=== PATIENT | male | born 1965 | race Caucasian/White ===

== ENCOUNTER 2016-12-22 09:27 | Emergency (ER) | payer SELFPAY ==
[~2016-12-22] VITALS: Ht 172.7 cm; Wt 115.0 kg
[2016-12-22 09:29] VITALS: Ht 172.7 cm; Wt 115.0 kg
[2016-12-22] MEDS ORDERED: SOD CHLORIDE 0.9% 1,000 ML IV STA (09:29)
[2016-12-22] MEDS ORDERED: ONDANSETRON 4 MG INJ IV STA (09:29)
[2016-12-22] MEDS ORDERED: LORAZEPAM 2 MG INJ IV ONE (09:30)
[2016-12-22] MEDS ORDERED: FAMOTIDINE 20 MG INJ IV ONE (09:30)
[2016-12-22 09:46] LABS: BASOPHILS % 0.4 % (0.0-2.0); EOSINOPHILS # 0.1 10^3/ul (0.0-0.5); EOSINOPHILS % 1.5 % (0.0-7.0); HEMATOCRIT 43.5 % (42.0-52.0); HEMOGLOBIN 15.1 g/dl (14.0-18.0); LYMPHOCYTES # 4.4 10^3/ul (0.8-2.9); LYMPHOCYTES % 48.3 % (15.0-51.0); MEAN CORPUSCULAR HEMOGLOBIN 30.9 pg (29.0-33.0); MEAN CORPUSCULAR HGB CONC 34.7 g/dl (32.0-37.0); MEAN PLATELET VOLUME 11.7 fl (7.4-10.4); MONOCYTE # 0.8 10^3/ul (0.3-0.9); MONOCYTES % 9.1 % (0.0-11.0); NEUTROPHIL # 3.7 10^3/ul (1.6-7.5); NEUTROPHILS % 40.4 % (39.0-77.0); PLATELET COUNT 220 10^3/UL (140-415); RED BLOOD COUNT 4.89 10^6/ul (4.70-6.10); RED CELL DISTRIBUTION WIDTH 12.4 % (11.5-14.5); WHITE BLOOD COUNT 9.1 10^3/ul (4.8-10.8)
[2016-12-22 10:05] LABS: ALANINE AMINOTRANSFERASE 106 IU/L (13-69); ALBUMIN 4.8 g/dl (3.3-4.9); ALBUMIN/GLOBULIN RATIO 1.29; ALKALINE PHOSPHATASE 63 IU/L (42-121); ANION GAP 19 (8-16); ASPARTATE AMINO TRANSFERASE 49 IU/L (15-46); BILIRUBIN,INDIRECT 0.9 mg/dl (0-1.1); BILIRUBIN,TOTAL 0.9 mg/dl (0.2-1.3); BLOOD UREA NITROGEN 14 mg/dl (7-20); CALCIUM 9.8 mg/dl (8.4-10.2); CARBON DIOXIDE 22 mmol/L (21-31); CHLORIDE 105 mmol/L (97-110); CREATININE 0.85 mg/dl (0.61-1.24); GLUCOSE 157 mg/dl (70-220); POTASSIUM 3.5 mmol/L (3.5-5.1); SODIUM 142 mmol/L (135-144); TOTAL PROTEIN 8.5 g/dl (6.1-8.1)
--- NOTE | 2016-12-22 10:07 | RADRPT ---
PROCEDURE: XR Chest. CLINICAL INDICATION: Chest pain TECHNIQUE: Single portable view of the chest was obtained COMPARISON: None FINDINGS: The heart is enlarged. The lungs are clear. There is no pleural effusion or pneumothorax. RPTAT: AA IMPRESSION: Mild Cardiomegaly. .Edward Mcmahon MD, Date Time Electronically viewed and signed by .Edward Mcmahon MD, on 12/22/2016 10:06 .S/
[2016-12-22 10:18] LABS: B-TYPE NATRIURETIC PEPTIDE 25 PG/ML (0-125)
[2016-12-22 10:20] LABS: TROPONIN-I < 0.012 ng/ml (0.00-0.12)
[2016-12-22] MEDS ORDERED: METOCLOPRAMIDE 10 MG INJ ONE (10:31)
[2016-12-22] MEDS ORDERED: MECLIZINE 12.5 MG TAB PO ONE (11:00)
[2016-12-22] MEDS ORDERED: METOCLOPRAMIDE 10 MG INJ IV ONE (11:00)
--- NOTE | 2016-12-22 11:43 | ERD ---
ER Documentation Chief Complaint Date/Time DATE: 12/22/16 TIME: 11:40 Chief Complaint nausea vomiting started today,denies pain HPI This is a 51-year-old male who presents to the emergency room for evaluation of nausea, vomiting and dizziness. This patient states that his symptoms have been present for 4 hours duration and states that his dizziness as a room spinning sensation worse with change in position sometimes relieved when laying flat. The patient denies any drug use, he does state that he drank a small amount of alcohol last night but denies any alcohol use this morning. The patient denies any chest pain or palpitations or shortness of breath at this time. ROS All systems reviewed and are negative except as per history of present illness. Medications Home Meds No Active Prescriptions or Reported Meds Allergies Allergies: Coded Allergies: No Known Allergy (Unverified , 12/22/16) PMhx/Soc History of Surgery: Yes (appendectomy) Anesthesia Reaction: No Hx Neurological Disorder: No Hx Respiratory Disorders: No Hx Cardiac Disorders: No Hx Psychiatric Problems: No Hx Miscellaneous Medical Probl: No Hx Alcohol Use: No Hx Substance Use: No Hx Tobacco Use: No Smoking Status: Never smoker Physical Exam Vitals Vital Signs Date Time Temp Pulse Resp B/P Pulse Ox O2 Delivery O2 Flow Rate FiO2 12/22/16 09:29 97.5 85 18 141/93 98 Physical Exam INITIAL VITAL SIGNS: Reviewed by me GENERAL: The patient is well developed and appropriate for usual state of health in no apparent distress HEENT: Pupils equal, round, and reactive to light. EOMI. There is no scleral icterus. NECK: C-spine is soft and supple, there is no meningismus. There is no cervical lymphadenopathy. LUNGS: Clear to auscultation bilaterally. There are no rales, wheezes or rhonchi. HEART: Regular rate and rhythm, no murmurs, clicks, rubs or gallops. ABDOMEN: Soft, non-tender, non-distended. There are bowel sounds in all four quadrants. No rebound or guarding. EXTREMITIES: There is no peripheral cyanosis or edema. No focal swelling or erythema. NEUROLOGICAL: Nonsustainable horizontal nystagmus, the patient moves all four extremities with 5/5 strength. Cranial nerves II - XII are intact. Normal gait. Alert and oriented SKIN: There is no apparent rash or petechiae. HEME/LYMPHATIC: There is no evidence of excessive bruising or lymphedema. PSYCHIATRIC: The patient does not appear anxious or depressed. Result Diagram: 12/22/1630 12/22/1630 Results 24 hrs Laboratory Tests Test 12/22/16 09:30 White Blood Count 9.110^3/ul Red Blood Count 4.8910^6/ul Hemoglobin 15.1g/dl Hematocrit 43.5% Mean Corpuscular Volume 89.0fl Mean Corpuscular Hemoglobin 30.9pg Mean Corpuscular Hemoglobin Concent 34.7g/dl Red Cell Distribution Width 12.4% Platelet Count 75458^3/UL Mean Platelet Volume 11.7fl Neutrophils % 40.4% Lymphocytes % 48.3% Monocytes % 9.1% Eosinophils % 1.5% Basophils % 0.4% Nucleated Red Blood Cells % 0.0/100WBC Neutrophils # 3.710^3/ul Lymphocytes # 4.410^3/ul Monocytes # 0.810^3/ul Eosinophils # 0.110^3/ul Basophils # 0.010^3/ul Nucleated Red Blood Cells # 0.010^3/ul Sodium Level 142mmol/L Potassium Level 3.5mmol/L Chloride Level 105mmol/L Carbon Dioxide Level 22mmol/L Anion Gap 19 Blood Urea Nitrogen 14mg/dl Creatinine 0.85mg/dl Glucose Level 157mg/dl Calcium Level 9.8mg/dl Total Bilirubin 0.9mg/dl Direct Bilirubin 0.00mg/dl Indirect Bilirubin 0.9mg/dl Aspartate Amino Transf (AST/SGOT) 49IU/L Alanine Aminotransferase (ALT/SGPT) 106IU/L Alkaline Phosphatase 63IU/L Troponin I < 0.012ng/ml B-Type Natriuretic Peptide 25PG/ML Total Protein 8.5g/dl Albumin 4.8g/dl Globulin 3.70g/dl Albumin/Globulin Ratio 1.29 Current Medications Medications (Trade) Dose Ordered Sig/Misty Route PRN Reason Start Time Stop Time Status Last Admin Dose Admin Sodium Chloride (NS) 1,000 ml @ 1,000 mls/hr Q1H STAT IV 12/22/16 09:29 12/22/16 10:28 DC 12/22/16 09:35 Ondansetron HCl (Zofran Inj) 4 mg ONCE STAT IV 12/22/16 09:29 12/22/16 09:31 DC 12/22/16 09:36 Lorazepam (Ativan) 1 mg ONCE ONCE IV 12/22/16 09:30 12/22/16 09:31 DC 12/22/16 09:36 Famotidine (Pepcid Iv) 20 mg ONCE ONCE IV 12/22/16 09:30 12/22/16 09:31 DC 12/22/16 09:36 Metoclopramide HCl (Reglan) 10 mg STK-MED ONCE .ROUTE 12/22/16 10:31 12/22/16 10:32 DC Metoclopramide HCl (Reglan) 10 mg ONCE ONCE IV 12/22/16 11:00 12/22/16 11:01 DC 12/22/16 10:42 Meclizine HCl (Antivert) 25 mg ONCE ONCE PO 12/22/16 11:00 12/22/16 11:01 DC 12/22/16 10:50 Procedures/MDM EKG: Rate/Rhythm: [Normal Sinus Rhythm] QRS, ST, T-waves: [No changes consistent w/ acute ischemia] Impression: [No evidence of ischemia or arrhythmia] Chest X-ray 1V Interpreted by me: Soft Tissue: No acute abnormalities Bones: No acute abnormalities Mediastinum/Cardiac Silhouette/Lungs: [No acute abnormalities] This 51-year-old male presents to the emergency room for evaluation of nausea vomiting and dizziness. When I evaluated this patient he was actively vomiting. The patient immediately had EKG done which does not show any ST elevations. The patient was complaining of spinning sensation and lightheadedness. The patient had a nonsustainable horizontal nystagmus. The patient was given meclizine, Zofran and Reglan in the emergency room. He continued to have a slight amount of lightheadedness and was given Ativan. He underwent a cardiac workup and his workup is negative at this point. He has no focal neurological deficits and I do not feel the patient needs a CAT scan at this time given the fact that I reevaluated this patient he said he was feeling much better. The patient likely suffering from BPPV and will be discharged with a prescription for meclizine at this time. The patient and the patient's family members are at bedside and felt comfortable with the plan of care. I did advise him to return immediately to the emergency room at the patient developed any vomiting which is not resolved with the meclizine or any dizziness or numbness or tingling in both the patient and the patient's family members verbalized understanding. Departure Diagnosis: Primary Impression: BPPV (benign paroxysmal positional vertigo) Additional Impression: Nausea and vomiting Condition: Stable WILL GALAVIZ DO Dec 22, 2016 11:43
[2016-12-22] MEDS ORDERED: MECL12.574 PO (11:45)
[2016-12-22 11:52] VITALS: BP 131/85; PULSE 78; RESP 18
== END 2016-12-22 12:00 | disposition home or self-care (01) ==
LOC: E/R 09:27
DX: H81.10 Benign paroxysmal vertigo, unspecified ear (principal); R40.2252 Coma scale, best verbal response, oriented, at arrival to emergency department; R40.2142 Coma scale, eyes open, spontaneous, at arrival to emergency department; R40.2362 Coma scale, best motor response, obeys commands, at arrival to emergency department; R07.9 Chest pain, unspecified
CPT/HCPCS: 36415; 71010; 80053; 83880; 84484; 85025; 93005; 96374; 96375; 99285; J2060; J2405; J2765; J7030